=== PATIENT | female | born 2005 ===

== ENCOUNTER 2024-06-01 06:23 | Day surgery (SDC) | payer OTHER, SELFPAY ==
[2024-06-01] VITALS (15 sets, daily range): BP systolic 81–109; BP diastolic 6–73; BMI 35.3
[2024-06-01] MEDS: TYLENOL 1000 MG PO (09:45)
[2024-06-01] MEDS: NORMOSOL-R 1000 IV (09:46)
== END 2024-06-01 16:24 | disposition home or self-care (01) ==
LOC: SDS 06:23
PROVIDERS: ATTENDING PHYSICIAN Surgery
DX: L05.01 Pilonidal cyst with abscess (principal)
CPT/HCPCS: 11771; 88304